=== PATIENT | male | born 1960 | race Caucasian/White ===

== ENCOUNTER → 2017-04-30 | Outpatient (REF) | payer BC ==
[2017-04-30 12:15] LABS: ALBUMIN 4.3 GM/DL (3.2-5.2); ALBUMIN/GLOBULIN RATIO 1.23 (1.00-1.93); ALKALINE PHOSPHATASE 105 U/L (45-117); ALT/SGPT 32 U/L (12-78); ANION GAP 6 MEQ/L (8-16); AST/SGOT 25 U/L (7-37); BILIRUBIN,TOTAL 0.5 MG/DL (0.2-1.0); BLOOD UREA NITROGEN 17 MG/DL (7-18); CARBON DIOXIDE LEVEL 30 MEQ/L (21-32); CHLORIDE LEVEL 105 MEQ/L (98-107); CHOLESTEROL LEVEL 216 MG/DL (<200); CREATININE FOR GFR 1.28 MG/DL (0.70-1.30); GLOMERULAR FILTRATION RATE > 60.0 (>56); GLUCOSE, FASTING 112 MG/DL (70-100); HDL CHOLESTEROL 61 MG/DL (>40); LDL CHOLESTEROL 108.4 MG/DL (<100); NON-HDL-C 155 MG/DL; POTASSIUM SERUM 4.2 MEQ/L (3.5-5.1); PSA SCREENING 0.61 NG/ML (< 4.0); SODIUM LEVEL 141 MEQ/L (136-145); TOTAL PROTEIN 7.8 GM/DL (6.4-8.2); TRIGLYCERIDES LEVEL 233 MG/DL (<150)
== END ==
LOC: M SFHCCLAY 07:30
DX: I10 Essential (primary) hypertension (principal); Z12.5 Encounter for screening for malignant neoplasm of prostate

== ENCOUNTER → 2017-06-01 | Outpatient (REF) | payer BC ==
[2017-06-01 12:34] LABS: ANION GAP 7 MEQ/L (8-16); BLOOD UREA NITROGEN 14 MG/DL (7-18); CALCIUM LEVEL 9.1 MG/DL (8.5-10.1); CARBON DIOXIDE LEVEL 30 MEQ/L (21-32); CHLORIDE LEVEL 102 MEQ/L (98-107); CREATININE FOR GFR 1.23 MG/DL (0.70-1.30); GLOMERULAR FILTRATION RATE > 60.0 (>56); GLUCOSE, FASTING 98 MG/DL (70-100); POTASSIUM SERUM 4.5 MEQ/L (3.5-5.1); SODIUM LEVEL 139 MEQ/L (136-145)
== END ==
LOC: M SFHCCLAY 09:50
DX: K40.90 Unilateral inguinal hernia, without obstruction or gangrene, not specified as recurrent (principal)
CPT/HCPCS: 80048

== ENCOUNTER → 2017-07-25 | Outpatient (REF) | payer BC ==
[2017-07-25 13:22] LABS: MAGNESIUM LEVEL 2.4 MG/DL (1.8-2.4)
[2017-07-27 09:46] LABS: TOTAL 25(OH) VITAMIN D 11.9 NG/ML (30.0-100.0)
== END ==
LOC: M LABDRAWC 11:30
DX: K22.70 Barrett's esophagus without dysplasia (principal); K21.9 Gastro-esophageal reflux disease without esophagitis; E55.9 Vitamin D deficiency, unspecified; E56.9 Vitamin deficiency, unspecified; R13.10 Dysphagia, unspecified
CPT/HCPCS: 83735

== ENCOUNTER → 2018-07-26 | Outpatient (CLI) | payer BC ==
--- NOTE | 2018-07-26 09:40 | REP ---
Left shoulder series: Three views. History: Left shoulder pain. Comparison A C joint radiographs are from September 24, 2013. Findings: There is a large dystrophic soft-tissue calcification superior to the humeral head in the some acromial soft tissues. This calcific density measures 3.9 no erosive changes seen. Glenohumeral and acromioclavicular joints are normally aligned. Impression: Very large calcific deposit consistent with chronic calcific tendonitis or bursitis. Otherwise negative. cm in greatest dimension and is consistent with calcific tendonitis or bursitis. Electronically Signed by Tanmay Steele MD 07/26/2018 09:32 A
== END ==
LOC: M CLY 08:40
PROVIDERS: ATTEND Family Medicine
DX: M25.512 Pain in left shoulder (principal)

== ENCOUNTER → 2019-10-08 | Outpatient (REF) | payer BC ==
[2019-10-09 13:15] LABS: MAGNESIUM LEVEL 2.4 MG/DL (1.8-2.4); TOTAL 25(OH) VITAMIN D 54.4 NG/ML (30.0-100.0)
== END ==
LOC: M LAB REF 11:21
PROVIDERS: ATTEND Nurse Practitioner Family
DX: K22.70 Barrett's esophagus without dysplasia (principal); K44.9 Diaphragmatic hernia without obstruction or gangrene; Z12.11 Encounter for screening for malignant neoplasm of colon; E55.9 Vitamin D deficiency, unspecified

== ENCOUNTER → 2020-05-11 | Outpatient (CLI) | payer BC ==
[~2020-05-11] MED LIST: PROHANCE 279.3MG/ML 15ML VIAL As Ordered ONE
--- NOTE | 2020-05-11 16:43 | REP ---
INDICATION: LT FOOT LUMP ? GANGLION CYST VS LESION. Lesion on the volar side of the left foot. COMPARISON: No comparison images are available. TECHNIQUE: . MR marker is affixed to the skin at site of the palpable lump. Axial, sagittal, and coronal imaging planes utilized. T1 and T2 weighted scans are obtained with and without fat saturation. 15 mL of intravenous ProHance is administered and postcontrast imaging is acquired. FINDINGS: Cortical and medullary bone signal intensity are normal. There is no evidence of tarsal coalition. The tibial plafond and ankle mortise appear intact. No significant ankle or subtalar joint effusion is seen. The distal Achilles tendon appears intact. No evidence of flexor or extensor tendinopathy is appreciated. At the plantar aspect of the foot at the level of the MR marker, there is subtle focal thickening of the plantar fascia which may reflect Freiberg's tissue. This shows low T2 signal intensity. No mass or ganglion cyst is seen. Postcontrast images show no abnormal gadolinium enhancement. No joint effusion is evident. IMPRESSION: No mass or a ganglion cyst seen. Question focal thickening of the plantar fascia at approximately the level of the MR marker on the volar aspect of the forefoot. <Electronically signed by Antonio Steele > 05/11/20 [id number]
== END ==
LOC: M RAD 14:56
PROVIDERS: ATTEND Podiatrist Foot & Ankle Surgery
DX: R22.42 Localized swelling, mass and lump, left lower limb (principal)
CPT/HCPCS: 73720; A9576

== ENCOUNTER → 2020-07-28 | Outpatient (REF) | payer BC | LOC: M LAB REF 09:57 | PROVIDERS: ATTEND Podiatrist Foot & Ankle Surgery | DX: G57.62 Lesion of plantar nerve, left lower limb (principal) ==

== ENCOUNTER → 2020-10-25 | Outpatient (CLI) | payer BC ==
--- NOTE | 2020-10-25 15:27 | REP ---
INDICATION: SCREENING FOR LUNG CA. COMPARISON: None. TECHNIQUE: Dose reduction was performed utilizing CARE dose with automated adjustment of the kV and MAS according to patient size; iterative reconstruction, automated exposure control, as well as adaptive dose shielding. Helical scanning is acquired and 3 mm axial images are re-formatted at lung windows. FINDINGS: some vascular calcification is noted. No pleural or pericardial effusion is evident. There is no evidence of mass, infiltrate, or significant pulmonary nodule. No bony destructive lesion. IMPRESSION: Lung RADS category 1 findings. Repeat screening exam suggested in 1 year. <Electronically signed by Antonio Steele > 10/25/20 [id number]
== END ==
LOC: M RAD 12:43
PROVIDERS: ATTEND Family Medicine
DX: Z12.2 Encounter for screening for malignant neoplasm of respiratory organs (principal); R91.8 Other nonspecific abnormal finding of lung field

== ENCOUNTER → 2021-02-21 | Outpatient (REF) | payer BC ==
[2021-02-22 12:03] LABS: BLOOD UREA NITROGEN 18 MG/DL (7-18); CARBON DIOXIDE LEVEL 30 MEQ/L (21-32); CHLORIDE LEVEL 107 MEQ/L (98-107); CREATININE FOR GFR 1.23 MG/DL (0.70-1.30); GLOMERULAR FILTRATION RATE > 60.0 (>49); GLUCOSE, FASTING 136 MG/DL (70-100); MAGNESIUM LEVEL 2.3 MG/DL (1.8-2.4); POTASSIUM SERUM 4.8 MEQ/L (3.5-5.1); SODIUM LEVEL 141 MEQ/L (136-145)
[2021-02-22 12:06] LABS: TOTAL 25(OH) VITAMIN D 39.7 NG/ML (30.0-100.0); VITAMIN B12 LEVEL 430 PG/ML (247-911)
== END ==
LOC: M LABDRAWC 11:10
PROVIDERS: ATTEND Physician Assistant
DX: R13.10 Dysphagia, unspecified (principal); K21.9 Gastro-esophageal reflux disease without esophagitis; E55.9 Vitamin D deficiency, unspecified; Z12.11 Encounter for screening for malignant neoplasm of colon

== ENCOUNTER → 2021-03-09 | Outpatient (CLI) | payer BC | LOC: M CLY 07:49 | PROVIDERS: ATTEND Family Medicine | DX: M25.512 Pain in left shoulder (principal); R05.9 Cough, unspecified ==

== ENCOUNTER → 2021-08-19 | Outpatient (CLI) | payer BC | LOC: M CLY 10:35 | PROVIDERS: ATTEND Nurse Practitioner Family | DX: M25.562 Pain in left knee (principal) ==

== ENCOUNTER → 2021-08-23 | Outpatient (REF) | payer BC ==
[2021-08-24 13:16] LABS: BLOOD UREA NITROGEN 15 MG/DL (7-18); CALCIUM LEVEL 9.2 MG/DL (8.8-10.2); CARBON DIOXIDE LEVEL 30 MEQ/L (21-32); CHLORIDE LEVEL 108 MEQ/L (98-107); GLOMERULAR FILTRATION RATE > 60.0 (>49); GLUCOSE, FASTING 111 MG/DL (70-100); MAGNESIUM LEVEL 2.3 MG/DL (1.8-2.4); SODIUM LEVEL 142 MEQ/L (136-145)
[2021-08-24 13:28] LABS: TOTAL 25(OH) VITAMIN D 43.8 NG/ML (30.0-100.0); VITAMIN B12 LEVEL 718 PG/ML (247-911)
== END ==
LOC: M LABDRAWC 11:45
PROVIDERS: ATTEND Physician Assistant
DX: E55.9 Vitamin D deficiency, unspecified (principal)

== ENCOUNTER → 2021-08-25 | Outpatient (CLI) | payer BC | LOC: M RAD 15:50 | PROVIDERS: ATTEND Nurse Practitioner Family | DX: M25.562 Pain in left knee (principal) ==

== ENCOUNTER → 2021-10-13 | Outpatient (REF) | payer BC ==
[2021-10-13 12:00] LABS: BLOOD UREA NITROGEN 18 MG/DL (7-18); CALCIUM LEVEL 9.2 MG/DL (8.8-10.2); CARBON DIOXIDE LEVEL 27 MEQ/L (21-32); CHLORIDE LEVEL 108 MEQ/L (98-107); CHOLESTEROL LEVEL 170 MG/DL (<200); CHOLESTEROL RISK RATIO 2.881 (<5); CREATININE FOR GFR 1.35 MG/DL (0.70-1.30); GLOMERULAR FILTRATION RATE 57.2 (>49); GLUCOSE, FASTING 107 MG/DL (70-100); HDL CHOLESTEROL 59 MG/DL (>40); NON-HDL-C 111 MG/DL; POTASSIUM SERUM 4.4 MEQ/L (3.5-5.1); SODIUM LEVEL 140 MEQ/L (136-145); TRIGLYCERIDES LEVEL 412 MG/DL (<150)
[2021-10-13 12:09] LABS: HEMOGLOBIN A1c 6.1 %
== END ==
LOC: M SFHCCLAY 07:41
PROVIDERS: ATTEND Nurse Practitioner Family
DX: E78.5 Hyperlipidemia, unspecified (principal); R73.01 Impaired fasting glucose; Z01.818 Encounter for other preprocedural examination

== ENCOUNTER → 2021-11-17 | Outpatient (CLI) | payer BC | LOC: M RAD 08:24 | PROVIDERS: ATTEND Family Medicine | DX: Z12.2 Encounter for screening for malignant neoplasm of respiratory organs (principal); F17.211 Nicotine dependence, cigarettes, in remission ==

== ENCOUNTER → 2022-03-10 | Outpatient (REF) | payer BC ==
[2022-03-10 14:05] LABS: ALBUMIN 4.4 G/DL (3.2-5.2); ALKALINE PHOSPHATASE 96 U/L (46-116); ALT/SGPT 27 U/L (7.0-40); AST/SGOT 23 U/L (<34); BILIRUBIN,TOTAL 0.5 MG/DL (0.3-1.2); BLOOD UREA NITROGEN 15 MG/DL (9-23); CARBON DIOXIDE LEVEL 29 MMOL/L (20-31); CHLORIDE LEVEL 103 MMOL/L (98-107); CHOLESTEROL LEVEL 160 MG/DL (<200); CHOLESTEROL RISK RATIO 2.08 (<5); GLOMERULAR FILTRATION RATE > 60.0 (>49); GLUCOSE, FASTING 103 MG/DL (74-106); HDL CHOLESTEROL 76.7 MG/DL (>40); LDL CHOLESTEROL 71.5 MG/DL (<100); NON-HDL-C 83 MG/DL; POTASSIUM SERUM 4.8 MMOL/L (3.5-5.1); SODIUM LEVEL 140 MMOL/L (136-145); TOTAL PROTEIN 7.3 G/DL (5.7-8.2); TRIGLYCERIDES LEVEL 59 MG/DL (<150)
[2022-03-10 14:44] LABS: HEMOGLOBIN A1c 5.6 % (4.0-6.0)
== END ==
LOC: M SFHCCLAY 08:44
PROVIDERS: ATTEND Nurse Practitioner Family
DX: K21.9 Gastro-esophageal reflux disease without esophagitis (principal); F17.211 Nicotine dependence, cigarettes, in remission; E78.5 Hyperlipidemia, unspecified; R73.03 Prediabetes

== ENCOUNTER → 2022-08-31 | Outpatient (REF) | payer BC ==
[2022-08-31 12:27] LABS: BLOOD UREA NITROGEN 15 MG/DL (9-23); CALCIUM LEVEL 8.4 MG/DL (8.3-10.6); CARBON DIOXIDE LEVEL 28 MMOL/L (20-31); CHLORIDE LEVEL 105 MMOL/L (98-107); CREATININE FOR GFR 1.18 MG/DL (0.70-1.30); GLOMERULAR FILTRATION RATE > 60.0 (>49); GLUCOSE, FASTING 109 MG/DL (74-106); POTASSIUM SERUM 4.3 MMOL/L (3.5-5.1); SODIUM LEVEL 139 MMOL/L (136-145)
[2022-08-31 12:30] LABS: TOTAL 25(OH) VITAMIN D 34.9 NG/ML (20.0-100.0); VITAMIN B12 LEVEL 431 PG/ML (211-911)
== END ==
LOC: M LABDRAWC 11:20
PROVIDERS: ATTEND Physical Therapist
DX: K22.70 Barrett's esophagus without dysplasia (principal); K21.9 Gastro-esophageal reflux disease without esophagitis; K22.2 Esophageal obstruction; K44.9 Diaphragmatic hernia without obstruction or gangrene; Z86.010 Personal history of colon polyps; E55.9 Vitamin D deficiency, unspecified; R13.10 Dysphagia, unspecified

== ENCOUNTER → 2023-05-02 | Outpatient (REF) | payer BC ==
[2023-05-02 12:59] LABS: ALBUMIN 4.1 G/DL (3.2-5.2); ALKALINE PHOSPHATASE 88 U/L (46-116); ALT/SGPT 34 U/L (7.0-40); AST/SGOT 23 U/L (<34); BILIRUBIN,TOTAL 0.6 MG/DL (0.3-1.2); BLOOD UREA NITROGEN 16 MG/DL (9-23); CARBON DIOXIDE LEVEL 29 MMOL/L (20-31); CHLORIDE LEVEL 106 MMOL/L (98-107); CHOLESTEROL LEVEL 166 MG/DL (<200); CHOLESTEROL RISK RATIO 2.53 (<5); CREATININE FOR GFR 1.22 MG/DL (0.70-1.30); GLOMERULAR FILTRATION RATE > 60.0 (>49); GLUCOSE, FASTING 121 MG/DL (74-106); HDL CHOLESTEROL 65.5 MG/DL (>40); LDL CHOLESTEROL 83.3 MG/DL (<100); NON-HDL-C 100.5 MG/DL; POTASSIUM SERUM 4.4 MMOL/L (3.5-5.1); SODIUM LEVEL 141 MMOL/L (136-145); TOTAL PROTEIN 6.9 G/DL (5.7-8.2); TRIGLYCERIDES LEVEL 86 MG/DL (<150)
== END ==
LOC: M SFHCCLAY 09:04
PROVIDERS: ATTEND Nurse Practitioner Family
DX: K21.9 Gastro-esophageal reflux disease without esophagitis (principal); E78.5 Hyperlipidemia, unspecified; R73.03 Prediabetes; N28.9 Disorder of kidney and ureter, unspecified; F17.211 Nicotine dependence, cigarettes, in remission

== ENCOUNTER → 2023-05-09 | Outpatient (CLI) | payer BC | LOC: M CLY 14:46 | PROVIDERS: ATTEND Nurse Practitioner Family | DX: M79.641 Pain in right hand (principal) ==

== ENCOUNTER → 2023-10-01 | Outpatient (REF) | payer BC ==
[2023-10-01 12:23] LABS: BASO # 0.2 10^3/uL (0.0-0.2); BASO % 2.6 % (0.0-1.0); EOS # 0.5 10^3/uL (0.0-0.5); EOS % 6.3 % (0.0-3.0); HEMATOCRIT 42.4 % (42.0-52.0); HEMOGLOBIN 14.2 g/dl (13.5-17.5); LYMPH # 2.3 10^3/uL (1.5-5.0); LYMPH % 29.5 % (24.0-44.0); MEAN CORPUSCULAR HEMOGLOBIN 28.9 pg (27.0-33.0); MEAN CORPUSCULAR HGB CONC 33.5 g/dl (32.0-36.5); MEAN CORPUSCULAR VOLUME 86.2 fl (80.0-96.0); MONO # 0.6 10^3/uL (0.0-0.8); MONO % 7.3 % (2.0-8.0); NEUTROPHILS # 4.2 10^3/uL (1.5-8.5); NEUTROPHILS % 54.2 % (36.0-66.0); PLATELET COUNT, AUTOMATED 278 10^3/uL (150-450); RED BLOOD COUNT 4.92 10^6/uL (4.30-6.10); WHITE BLOOD COUNT 7.8 10^3/uL (4.0-10.0)
[2023-10-01 12:53] LABS: BLOOD UREA NITROGEN 17 MG/DL (9-23); CALCIUM LEVEL 9.3 MG/DL (8.3-10.6); CARBON DIOXIDE LEVEL 31 MMOL/L (20-31); CHLORIDE LEVEL 106 MMOL/L (98-107); CHOLESTEROL LEVEL 155 MG/DL (<200); CREATININE FOR GFR 1.22 MG/DL (0.70-1.30); GLOMERULAR FILTRATION RATE > 60.0 (>49); GLUCOSE, FASTING 110 MG/DL (74-106); HDL CHOLESTEROL 55.3 MG/DL (>40); LDL CHOLESTEROL 62.5 MG/DL (<100); NON-HDL-C 99.7 MG/DL; POTASSIUM SERUM 5.3 MMOL/L (3.5-5.1); SODIUM LEVEL 141 MMOL/L (136-145); TRIGLYCERIDES LEVEL 186 MG/DL (<150)
[2023-10-01 13:02] LABS: HEMOGLOBIN A1c 5.9 % (4.0-6.0)
== END ==
LOC: M LABDRAWC 11:49
PROVIDERS: ATTEND Internal Medicine Cardiovascular Disease
DX: Z13.1 Encounter for screening for diabetes mellitus (principal); I25.10 Atherosclerotic heart disease of native coronary artery without angina pectoris; E78.5 Hyperlipidemia, unspecified; E78.2 Mixed hyperlipidemia; I48.0 Paroxysmal atrial fibrillation; I50.9 Heart failure, unspecified; I11.0 Hypertensive heart disease with heart failure

== ENCOUNTER → 2024-05-13 | Outpatient (REF) | payer BC ==
[2024-05-13 13:02] LABS: ALBUMIN 4.3 G/DL (3.2-5.2); ALKALINE PHOSPHATASE 89 U/L (40-129); ALT/SGPT 42 U/L (7.0-40); AST/SGOT 29 U/L (<34); BILIRUBIN,TOTAL 0.7 MG/DL (0.3-1.2); BLOOD UREA NITROGEN 23 MG/DL (9-23); CALCIUM LEVEL 9.4 MG/DL (8.3-10.6); CARBON DIOXIDE LEVEL 29 MMOL/L (20-31); CHLORIDE LEVEL 106 MMOL/L (98-107); CHOLESTEROL LEVEL 194 MG/DL (<200); CHOLESTEROL RISK RATIO 3.16 (<5); CREATININE FOR GFR 1.11 MG/DL (0.70-1.30); GLOMERULAR FILTRATION RATE > 60.0 (>49); GLUCOSE, FASTING 109 MG/DL (74-106); HDL CHOLESTEROL 61.3 MG/DL (>40); LDL CHOLESTEROL 106.3 MG/DL (<100); NON-HDL-C 132.7 MG/DL; POTASSIUM SERUM 4.6 MMOL/L (3.5-5.1); SODIUM LEVEL 143 MMOL/L (136-145); TOTAL PROTEIN 7.4 G/DL (5.7-8.2); TRIGLYCERIDES LEVEL 132 MG/DL (<150)
== END ==
LOC: M SFHCCLAY 09:06
PROVIDERS: ATTEND Nurse Practitioner Family
DX: R94.2 Abnormal results of pulmonary function studies (principal); E78.5 Hyperlipidemia, unspecified; K21.9 Gastro-esophageal reflux disease without esophagitis; R73.03 Prediabetes; F17.211 Nicotine dependence, cigarettes, in remission

== ENCOUNTER → 2024-08-07 | Outpatient (REF) | payer BC | LOC: M SFHCCLAY 17:07 | PROVIDERS: ATTEND Nurse Practitioner Family | DX: J06.9 Acute upper respiratory infection, unspecified (principal) ==

== ENCOUNTER → 2024-08-07 | Outpatient (CLI) | payer BC | LOC: M CLY 12:57 | PROVIDERS: ATTEND Nurse Practitioner Family | DX: J06.9 Acute upper respiratory infection, unspecified (principal) ==

== ENCOUNTER → 2024-10-21 | Outpatient (REF) | payer BC ==
[2024-10-21 12:32] LABS: ALT/SGPT 36.0 U/L (7.0-40); AST/SGOT 23.0 U/L (<34); CALCIUM LEVEL 9.1 MG/DL (8.3-10.6); CARBON DIOXIDE LEVEL 27.0 MMOL/L (20-31); CHLORIDE LEVEL 103.0 MMOL/L (98-107); CHOLESTEROL LEVEL 151.0 MG/DL (<200); CHOLESTEROL RISK RATIO 2.71 (<5); CREATININE FOR GFR 1.17 MG/DL (0.70-1.30); GLOMERULAR FILTRATION RATE 69.6 (>49); LDL CHOLESTEROL 78.1 MG/DL (<100); NON-HDL-C 95.3 MG/DL; POTASSIUM SERUM 4.0 MMOL/L (3.5-5.1); SODIUM LEVEL 142.0 MMOL/L (136-145); TRIGLYCERIDES LEVEL 86.0 MG/DL (<150)
[2024-10-21 12:48] LABS: ESTIMATED AVERAGE GLUCOSE 134.0 MG/DL (60-110)
== END ==
LOC: M SFHCCLAY 08:19
PROVIDERS: ATTEND Nurse Practitioner Family
DX: E78.5 Hyperlipidemia, unspecified (principal); K21.9 Gastro-esophageal reflux disease without esophagitis; R73.03 Prediabetes; F17.211 Nicotine dependence, cigarettes, in remission; I10 Essential (primary) hypertension; M79.641 Pain in right hand

== ENCOUNTER → 2024-10-21 | Outpatient (CLI) | payer BC | LOC: M CLY 08:23 | PROVIDERS: ATTEND Nurse Practitioner Family | DX: R05.3 Chronic cough (principal) ==

== ENCOUNTER → 2024-12-22 | Outpatient (REF) | payer BC ==
[2024-12-22 12:36] LABS: CALCIUM LEVEL 9.1 MG/DL (8.3-10.6); CARBON DIOXIDE LEVEL 30.0 MMOL/L (20-31); CHLORIDE LEVEL 105.0 MMOL/L (98-107); CREATININE FOR GFR 1.2 MG/DL (0.70-1.30); GLOMERULAR FILTRATION RATE 67.5 (>49); MAGNESIUM LEVEL 2.1 MG/DL (1.8-2.4); POTASSIUM SERUM 4.9 MMOL/L (3.5-5.1); SODIUM LEVEL 143.0 MMOL/L (136-145)
[2024-12-22 12:38] LABS: TOTAL 25(OH) VITAMIN D 39.9 NG/ML (20.0-100.0)
[2024-12-22 12:39] LABS: VITAMIN B12 LEVEL 521.0 PG/ML (211-911)
== END ==
LOC: M LABDRAWC 11:59
PROVIDERS: ATTEND Physician Assistant
DX: K22.70 Barrett's esophagus without dysplasia (principal); R13.0 Aphagia; E55.9 Vitamin D deficiency, unspecified